=== PATIENT | female | born 1985 | race Caucasian/White ===

== ENCOUNTER 2024-06-12 14:12 | Emergency (ER) | payer SELFPAY ==
[~2024-06-12] VITALS: Ht 165.1 cm; Wt 54.0 kg
[2024-06-12 14:17] VITALS: TEMP 98.6
[2024-06-12] MEDS ORDERED: IBUPROFEN600 MG PO (16:37)
[2024-06-12] MEDS ORDERED: AMBIEN5 MG PO (16:55)
[2024-06-12] MEDS: IBUPROFEN 600 MG TAB PO STA (16:57)
[2024-06-12 17:00] VITALS: PULSE 88; RESP 16; O2SAT 98
== END 2024-06-12 17:05 | disposition home or self-care (01) ==
LOC: FSED 14:23
DX: M25.531 Pain in right wrist (principal); S62.161A Displaced fracture of pisiform, right wrist, initial encounter for closed fracture; W18.39XA Other fall on same level, initial encounter; Y92.89 Other specified places as the place of occurrence of the external cause
CPT/HCPCS: 99283

== ENCOUNTER 2024-06-23 15:15 | Emergency (ER) | payer SELFPAY ==
[~2024-06-23] VITALS: Ht 165.1 cm; Wt 54.0 kg
[~2024-06-23 15:15] MED LIST: AMBIEN5 MG PO; IBUPROFEN600 MG PO
[2024-06-23 15:29] VITALS: PULSE 100; RESP 18; TEMP 98; O2SAT 96
== END 2024-06-23 16:55 | disposition left against medical advice (07) ==
LOC: FSED 15:51
DX: M79.671 Pain in right foot (principal); S92.351A Displaced fracture of fifth metatarsal bone, right foot, initial encounter for closed fracture; X50.1XXA Overexertion from prolonged static or awkward postures, initial encounter; Y93.01 Activity, walking, marching and hiking; Y92.89 Other specified places as the place of occurrence of the external cause

== ENCOUNTER 2024-06-24 18:44 | Emergency (ER) | payer SELFPAY ==
[~2024-06-24] VITALS: Ht 165.1 cm; Wt 54.0 kg
[2024-06-24 18:55] VITALS: PULSE 92; RESP 18; TEMP 98.6
[2024-06-24 20:18] VITALS: BP 110/58; PULSE 92; RESP 18; TEMP 98.6; O2SAT 100
== END 2024-06-24 20:18 | disposition home or self-care (01) ==
LOC: FSED 18:46
DX: S92.354A Nondisplaced fracture of fifth metatarsal bone, right foot, initial encounter for closed fracture (principal); X58.XXXA Exposure to other specified factors, initial encounter; Y92.89 Other specified places as the place of occurrence of the external cause
CPT/HCPCS: 99283